=== PATIENT | male | born 1995 | race Caucasian/White ===

== ENCOUNTER → 2019-07-12 14:46 | Outpatient (CLI) | payer OTHER, SELFPAY ==
--- NOTE | 2019-07-12 | DI.CT.S_ITS ---
PROCEDURE: CT UE RT WO CON INDICATIONS: RIGHT WRIST FRACTURE TECHNIQUE: Noncontrast 1 mm axial sections acquired through the carpal bones, with coronal and sagittal reformats. COMPARISON: [facility] Outside Film, CR, XR WRIST 3+ VIEWS RIGHT, 07/06/2019, 20:47. FINDINGS: Image quality: Excellent. Bones: Minimally impacted distal, dorsal radial metaphyseal fracture seen with intra-articular extension. There is minimal diastasis of the articular surface with approximately 1 mm of gapping and no definite cortical step-off. Possible cortical chip fracture involving the ulnar styloid. Soft tissues: Associated soft tissue swelling. Flexion extensor tendons grossly unremarkable. IMPRESSION: Minimally impacted intra-articular fracture of the dorsal distal radial metaphysis as above. Possible small cortical avulsion fracture involving the ulnar styloid Dictated by: Trung Streeter M.D. on 07/12/2019 at 16:53 Approved by: Trung Streeter M.D. on 07/12/2019 at 16:56
== END ==
PROVIDERS: Visit Provider Orthopaedic Surgery
DX: S52.571A Other intraarticular fracture of lower end of right radius, initial encounter for closed fracture (principal); X58.XXXA Exposure to other specified factors, initial encounter
CPT/HCPCS: 73200